=== PATIENT | male | born 1970 ===

== ENCOUNTER 2017-12-13 23:16 | Emergency (ER) | payer SELFPAY ==
[2017-12-14 01:17] LABS: Hematocrit 38.6 % (35.5-45.6); Hemoglobin 12.6 gm/dl (11.8-15.2); Mean Corpuscular HGB Conc 33 % (32-34); Mean Corpuscular Hemoglobin 31 pg (28-32); Mean Corpuscular Volume 95 fl (84-94); Platelet Count 355 K/mm3 (140-440); Red Blood Count 4.05 M/mm3 (3.65-5.03); Red Cell Distribution Width 13.8 % (13.2-15.2)
[2017-12-14 01:34] LABS: Calcium 9.7 mg/dL (8.4-10.2)
[2017-12-14 02:19] LABS: Band Neutrophils # (Manual) 0.4 K/mm3; Basophils % (Manual) 0 % (0.0-1.8); Eosinophils % (Manual) 0 % (0.0-4.3); Platelet Estimate Consistent w Auto; RBC Morphology Normal; Total Cells Counted 100
[2017-12-14 02:51] LABS: Bilirubin,Urine NEG (Negative); Blood,Urine LG (Negative); Color,Urine Yellow (Yellow); Granular Casts,Urine 1 /LPF; Mucus,Urine FEW /HPF; Urobilinogen,Urine < 2.0 mg/dL (<2.0); White Blood Cell Casts,Urine 1 /LPF
[2017-12-14] MEDS ORDERED: NACL 0.9% 1000 ML 1,000 ML IV ONE ×3 (05:55→12:14)
[2017-12-14] MEDS ORDERED: NACL 0.9% 1000 ML 1,000 ML ONE (06:03)
[2017-12-14] MEDS ORDERED: D50W (25GM) Syringe IV PRN (06:32)
[2017-12-14] MEDS ORDERED: ROCEPHIN/NS 1 GM/50 ML 1 GM/50 ML BAG IV ONE (06:33)
[2017-12-14] MEDS ORDERED: ZOFRAN IV ONE ×2 (06:36→12:14)
--- NOTE | 2017-12-14 06:38 | Emergency Department Report ---
ED General Adult HPI - General Chief complaint: Hyperglycemia Stated complaint: DIFF.SWALLOWING/DIABETIC Time Seen by Provider: 12/14/17 06:27 Source: patient Mode of arrival: Ambulatory Limitations: No Limitations - History of Present Illness Initial comments: Patient is 47 years old male with history of diabetes type 2 on metformin. Patient stated that he was fine until one week ago when he started to have a sore throat he went to his doctor and he prescribed him Zithromax and prednisone. Patient was told that he had a strep throat. Patient stated that he felt better for one or 2 days and then he starts having nausea and vomiting and his blood sugars start rising and he started feeling difficulty swallowing. Patient denied any fever, stridor or shortness of breath. Patient also denied any chest pain or abdominal pain or diarrhea. - Related Data Home Medications Medication Instructions Recorded Confirmed Last Taken Prednisone 1 tab 12/14/17 Unknown Zithromax Z-MARGARITA 1 tab 12/14/17 Unknown Allergies Allergy/AdvReac Type Severity Reaction Status Date / Time No Known Allergies Allergy Unverified 12/14/17 00:28 ED Review of Systems ROS: Stated complaint: DIFF.SWALLOWING/DIABETIC Other details as noted in HPI Comment: All other systems reviewed and negative Constitutional: denies: chills, fever ENT: throat pain Respiratory: denies: cough, orthopnea, shortness of breath, SOB with exertion Cardiovascular: denies: chest pain, palpitations, dyspnea on exertion Gastrointestinal: nausea, vomiting. denies: abdominal pain Genitourinary: frequency. denies: urgency, dysuria, discharge, testicular pain , testicular mass Musculoskeletal: denies: back pain Neurological: weakness (generalized weakness). denies: headache ED Past Medical Hx - Past Medical History Hx Diabetes: Yes - Surgical History Past Surgical History?: No - Social History Smoking Status: Current Every Day Smoker Substance Use Type: Marijuana - Medications Home Medications: Home Medications Medication Instructions Recorded Confirmed Last Taken Type Prednisone 1 tab 12/14/17 Unknown History Zithromax Z-MARGARITA 1 tab 12/14/17 Unknown History ED Physical Exam - General Limitations: No Limitations General appearance: alert, in no apparent distress - Head Head exam: Present: atraumatic, normocephalic, normal inspection - ENT ENT exam: Present: mucous membranes dry, other (pharyngeal erythema no obvious exudate) - Neck Neck exam: Present: normal inspection, full ROM. Absent: tenderness, meningismus, lymphadenopathy, thyromegaly - Respiratory Respiratory exam: Present: normal lung sounds bilaterally. Absent: respiratory distress, wheezes, rales, rhonchi, stridor, chest wall tenderness, accessory muscle use, decreased breath sounds, prolonged expiratory - Cardiovascular Cardiovascular Exam: Present: regular rate, normal rhythm, normal heart sounds - GI/Abdominal GI/Abdominal exam: Present: soft, normal bowel sounds. Absent: distended, tenderness, guarding, rebound, rigid, organomegaly, mass, bruit, pulsatile mass - Extremities Exam Extremities exam: Present: normal inspection, full ROM, normal capillary refill. Absent: pedal edema, calf tenderness - Back Exam Back exam: Present: normal inspection, full ROM. Absent: tenderness, CVA tenderness (R), CVA tenderness (L), muscle spasm, paraspinal tenderness, vertebral tenderness - Neurological Exam Neurological exam: Present: alert, oriented X3, CN II-XII intact, normal gait, reflexes normal - Skin Skin exam: Present: warm, intact, normal color ED Course Vital Signs 12/14/17 12/14/17 12/14/17 00:15 05:38 06:00 Temperature 99.1 F 98 F Pulse Rate 88 60 60 Respiratory 18 19 18 Rate Blood Pressure 97/70 99/58 Blood Pressure 105/61 [Left] O2 Sat by Pulse 99 97 Oximetry 12/14/17 08:11 Temperature Pulse Rate Respiratory Rate Blood Pressure 103/62 Blood Pressure [Left] O2 Sat by Pulse Oximetry - Reevaluation(s) Reevaluation #1: 12/14/17 11:02 Patient is alert oriented 3 in no acute distress. No airway compromise. I discussed the patient with [facility] and stated that they will talk to the ENT and they'll call me back. ED Medical Decision Making - Lab Data Result diagrams: 12/14/17 01:02 12/14/17 08:48 - EKG Data -: EKG Interpreted by Me EKG shows normal: sinus rhythm Rate: normal - EKG Data Interpretation: no acute changes - Medical Decision Making Mr. Espinoza is 47 years old male with history of diabetes type 2 on metformin. Patient stated that he was fine until one week ago when he started to have a sore throat he went to his doctor and he prescribed him Zithromax and prednisone. Patient was told that he had a strep throat. Patient stated that he felt better for one or 2 days and then he starts having nausea and vomiting and his blood sugars start rising and he started feeling difficulty swallowing. Patient denied any fever, stridor or shortness of breath. Patient also denied any chest pain or abdominal pain or diarrhea. Patient immediately started on IV fluids. Patient found to be in diabetic ketoacidosis and acute renal failure. Insulin drip was started. I gave patient Rocephin initially and then added clindamycin to patient found to have a parapharyngeal abscess with no airway compromise. I discussed with from [place] intensive care unit and she accepted the patient to be transferred to [place]. Patient will be transferred there in a stable condition. Critical Care Time: Yes Critical care time in (mins) excluding proc time.: 60 Critical care attestation.: If time is entered above; I have spent that time in minutes in the direct care of this critically ill patient, excluding procedure time. ED Disposition Clinical Impression: DKA (diabetic ketoacidoses), Acute renal failure, Parapharyngeal abscess Disposition: [id number] ANOTHER TYPE HLTHCARE Is pt being admited?: No Condition: Stable Instructions: Diabetic Ketoacidosis (ED) Referrals: PRIMARY CARE, [Primary Care Provider] - 3-5 Days
[2017-12-14] MEDS ORDERED: HumuLIN R 100 UNITS in NACL 0.9% 99 ML IV SCH (07:00)
[2017-12-14 08:04] LABS: Calcium 8.5 mg/dL (8.4-10.2)
--- NOTE | 2017-12-14 09:08 | Cat Scan Report ---
FINAL REPORT EXAM: CT NECK WO CON HISTORY: neck pain, difficulty swallowing TECHNIQUE: Noncontrast CT of the neck performed. Axial images and coronal and sagittal reformatted images were obtained PRIORS: None. FINDINGS: Evaluation limited by lack of IV contrast. Grossly, there is some right tonsillar enlargement. There is a any elongated fluid collection with gas bubbles in the parapharyngeal tissues on the right which is consistent with a peritonsillar/parapharyngeal abscess. Its margins are poorly visualized without the benefit of IV contrast. Grossly, this extends from the tonsillar region inferiorly along the right lateral hypopharynx to about the level of the hyoid bone. Specifically it measures over 7 cm length, about 3.5 cm AP superiorly and up to 1.5 cm transverse. There is surrounding edema. Tissue planes in the right parapharyngeal region artery effaced/blurred. There is associated prevertebral edema. There is no convincing airway compromise. Sinuses are clear. Small lymph nodes are seen in the right neck, likely reactive. IMPRESSION: Evaluation limited due to lack of IV contrast material. There is parapharyngeal edema and swelling within an elongated parapharyngeal abscess containing fluid and gas bubbles. This abscess extends from the level of the right tonsil down to the level of the hyoid bone and roughly measures 7 x 3.5 x 1.5 cm.
[2017-12-14 09:24] LABS: Calcium 8.4 mg/dL (8.4-10.2)
[2017-12-14] MEDS ORDERED: CLEOCIN 600 MG/50 mL 600 MG/50 ML BAG IV ONE (11:03)
[2017-12-14 12:13] LABS: Calcium 9.1 mg/dL (8.4-10.2)
[2017-12-14] MEDS ORDERED: MORPHINE IV ONE (12:14)
[2017-12-14 13:08] LABS: Calcium 9.1 mg/dL (8.4-10.2)
[2017-12-14] MEDS ORDERED: D5W/0.45% NACL/KCL 20 MEQ 20 MEQ/1,000 ML BAG IV SCH (14:00)
[2017-12-14 15:22] VITALS: BP 101/66
[2017-12-14 17:48] LABS: Calcium 8.5 mg/dL (8.4-10.2)
== END 2017-12-14 15:23 | disposition other institution (70) ==
LOC: ED 23:16
DX: J39.1 Other abscess of pharynx (principal); R11.2 Nausea with vomiting, unspecified; E11.10 Type 2 diabetes mellitus with ketoacidosis without coma; N17.9 Acute kidney failure, unspecified; F17.200 Nicotine dependence, unspecified, uncomplicated; F12.10 Cannabis abuse, uncomplicated; Z79.899 Other long term (current) drug therapy; Z79.84 Long term (current) use of oral hypoglycemic drugs
CPT/HCPCS: 36415; 70490; 80048; 81001; 82805; 82962; 83735; 84100; 85007; 85025; 87040; 96361; 96365; 96366; 96367; 96368; 96375; 96376; 99291; J0696; J2270; J2405; J7030; J1815